=== PATIENT | female | born 1990 | race Caucasian/White ===

== ENCOUNTER 2018-01-01 22:32 | Inpatient (IN) ==
--- NOTE | 2018-01-02 00:39 | ED ---
HPI General Chief Complaint: Abdominal Pain Stated Complaint: flank pain Time Seen by Provider: 01/02/18 00:20 History of Present Illness HPI narrative: Patient presents to the emergency department complaining of right upper quadrant epigastric pain 1 week. Pain described as sharp/dull, constant, no aggravating or alleviating factors, she has a MD appointment on the for the symptoms. Is also complaining of approximately 3-4 episodes of yellow mucousy diarrhea that started today, nausea, temperature 99.3, but she denies vomiting, fever, chills, vaginal discharge, or dysuria. Last menstrual period was November 28. Related Data Home Medications Medication Instructions Recorded Confirmed meloxicam 15 mg PO DAILY 01/02/18 01/02/18 Allergies Allergy/AdvReac Type Severity Reaction Status Date / Time No Known Allergies Allergy Verified 01/02/18 00:49 Review of Systems ROS: all other systems reviewed are negative [facility] Medical History Medical History Patient denies medical problems (Acute) Surgical History Surgical History No history of previous surgery (Acute) Social History Social History Substance History: No History of Abuse Second Hand Smoke Exposure: No Smoking Status: Never smoker How Often Do You Have a Drink Containing Alcohol: Monthly or less Recent Travel in [facility] within the Last 8 Weeks: No Recent Out of Country Travel within the Last 8 Weeks: No Exam Narrative Exam Narrative: GENERAL: No acute distress. SKIN: Focused skin assessment warm/dry. HEAD: Atraumatic. Normocephalic. EYES: Pupils equal and round. No scleral icterus. No injection or drainage. ENT: No nasal bleeding or discharge. Mucous membranes pink and moist. NECK: Trachea midline. No JVD. CARDIOVASCULAR: Regular rate and rhythm. No murmur appreciated. RESPIRATORY: No accessory muscle use. Clear to auscultation. Breath sounds equal bilaterally. GASTROINTESTINAL: Abdomen soft, epigastric and right upper quadrant tenderness, obese. Hepatic and splenic margins not palpable. MUSCULOSKELETAL: No obvious deformities. No clubbing. No cyanosis. No edema. NEUROLOGICAL: Awake and alert. No obvious cranial nerve deficits. Motor grossly within normal limits. Normal speech. PSYCHIATRIC: Appropriate mood and affect; insight and judgment normal. Course Initial Documented Vital Signs Temperature 98.4 F 01/01/18 23:37 Pulse Rate 121 H 01/01/18 23:37 Respiratory Rate 16 01/01/18 23:37 Blood Pressure 165/98 H 01/01/18 23:37 Pulse Oximetry 100 01/01/18 23:37 Last Documented Vital Signs Temperature 98.4 F 01/01/18 23:37 Pulse Rate 121 H 01/01/18 23:37 Respiratory Rate 16 01/01/18 23:37 Blood Pressure 165/98 H 01/01/18 23:37 Pulse Oximetry 100 01/01/18 23:37 Medical Decision Making MDM Narrative Medical decision making narrative: Patient presents to the emergency department with abdominal pain 1 week patient placed on rn cardiac cath, continuous pulse ox, and IV access obtained and is anxious and is requesting medicine for anxiety , and Ativan 1 mg IV given. Right upper quadrant ultrasound, CT abdomen pelvis , and labs ordered. 0157: Spoke to Dr. Klein, surgery caption writer. Admit to hospitalist, keep NPO. U/A + UTI U/S: Gallstones. The gallbladder wall is borderline thickened. CT: CONCLUSION:1. No acute abnormality seen.2. Gallstones Labs: elevated wbc, glc, ALT; + UTI Medical Screen Exam Complete: Yes Emergency Medical Condition: Yes Differential Diagnosis Differential Diagnosis: Cholelithiasis, cholecystitis, peptic ulcer disease/GERD , pancreatitis, POC Test Results POC Urine Results: Negative Lab Data Result diagrams: 01/02/18 01:40 01/02/18 01:40 Lab Results 01/02/18 01/02/18 01/02/18 Range/Units 00:35 01:40 01:40 WBC 13.4 H (4.0-11.0) th/mm3 RBC 5.14 (4.00-5.30) mil/mm3 Hgb 14.6 (11.6-15.3) gm/dL Hct 42.3 (35.0-46.0) % MCV 82.2 (80.0-100.0) fL MCH 28.4 (27.0-34.0) pg MCHC 34.5 (32.0-36.0) % RDW 12.7 (11.6-17.2) % Plt Count 315 (150-450) th/mm3 MPV 7.0 (7.0-11.0) fL Neut % (Auto) 76.8 H (16.0-70.0) % Lymph % (Auto) 17.2 (9.0-44.0) % [place]once % (Auto) 5.0 (0.0-8.0) % Eos % (Auto) 0.6 (0.0-4.0) % Baso % (Auto) 0.4 (0.0-2.0) % Neut # (Auto) 10.3 H (1.8-7.7) th/mm3 Lymph # (Auto) 2.3 (1.0-4.8) th/mm3 [place] # (Auto) 0.7 (0.0-0.9) th/mm3 Eos # (Auto) 0.1 (0.0-0.4) th/mm3 Baso # (Auto) 0.0 (0.0-0.2) th/mm3 WBC Differential . Differential Comment Auto diff final PT 9.9 (9.8-11.6) sec INR 1.0 Ratio APTT 24.7 (24.3-30.1) sec Sodium (136-145) meq/L Potassium (3.5-5.1) meq/L Chloride (98-107) meq/L Carbon Dioxide (21.0-32.0) meq/L Anion Gap (5-15) meq/L BUN (7-18) mg/dL Creatinine (0.50-1.00) mg/dL Estimated GFR (>89) mL/min Random Glucose (74-106) mg/dL Lactic Acid (0.4-2.0) mmol/L Calcium (8.5-10.1) mg/dL Total Bilirubin (0.2-1.0) mg/dL AST (15-37) U/L ALT (10-53) U/L Alkaline Phosphatase (45-117) U/L Total Protein (6.4-8.2) g/dL Albumin (3.4-5.0) g/dL Lipase (73-393) U/L Urine Color Yellow (Yellw/Straw) Urine Clarity Hazy H (Clear) Urine pH 5.0 (5.0-8.5) Ur Specific [place] 1.025 (1.002-1.035) Urine Protein Negative (Neg-Trace) mg/dL Urine Glucose (UA) Negative (Negative) mg/dL Urine Ketones Negative (Negative) mg/dL Urine Occult Blood Moderate H (Negative) Urine Nitrate Negative (Negative) Urine Bilirubin Negative (Negative) Urine Urobilinogen Less than 2 (Less than 2) mg/dL Ur Leukocyte Esterase Moderate H (Negative) Urine RBC 10 H (0-3) /hpf Urine WBC 17 H (0-5) /hpf Ur Squamous Epith Cells 5 (0-5) /hpf Urine Bacteria Occasional H (None) /hpf Hyaline Casts 1 (0-3) /lpf Micro UA Comment Culture indicated Urine Culture Comments Culture indicated 01/02/18 01/02/18 Range/Units 01:40 01:40 WBC (4.0-11.0) th/mm3 RBC (4.00-5.30) mil/mm3 Hgb (11.6-15.3) gm/dL Hct (35.0-46.0) % MCV (80.0-100.0) fL MCH (27.0-34.0) pg MCHC (32.0-36.0) % RDW (11.6-17.2) % Plt Count (150-450) th/mm3 MPV (7.0-11.0) fL Neut % (Auto) (16.0-70.0) % Lymph % (Auto) (9.0-44.0) % [place] % (Auto) (0.0-8.0) % Eos % (Auto) (0.0-4.0) % Baso % (Auto) (0.0-2.0) % Neut # (Auto) (1.8-7.7) th/mm3 Lymph # (Auto) (1.0-4.8) th/mm3 [place] # (Auto) (0.0-0.9) th/mm3 Eos # (Auto) (0.0-0.4) th/mm3 Baso # (Auto) (0.0-0.2) th/mm3 WBC Differential Differential Comment PT (9.8-11.6) sec INR Ratio APTT (24.3-30.1) sec Sodium 140 (136-145) meq/L Potassium 3.8 (3.5-5.1) meq/L Chloride 106 (98-107) meq/L Carbon Dioxide 25.5 (21.0-32.0) meq/L Anion Gap 9 (5-15) meq/L BUN 15 (7-18) mg/dL Creatinine 0.73 (0.50-1.00) mg/dL Estimated GFR Greater than 89 (>89) mL/min Random Glucose 107 H (74-106) mg/dL Lactic Acid 1.1 (0.4-2.0) mmol/L Calcium 8.7 (8.5-10.1) mg/dL Total Bilirubin 0.7 (0.2-1.0) mg/dL AST 18 (15-37) U/L ALT 65 H (10-53) U/L Alkaline Phosphatase 108 (45-117) U/L Total Protein 7.6 (6.4-8.2) g/dL Albumin 3.8 (3.4-5.0) g/dL Lipase 81 (73-393) U/L Urine Color (Yellw/Straw) Urine Clarity (Clear) Urine pH (5.0-8.5) Ur Specific [place] (1.002-1.035) Urine Protein (Neg-Trace) mg/dL Urine Glucose (UA) (Negative) mg/dL Urine Ketones (Negative) mg/dL Urine Occult Blood (Negative) Urine Nitrate (Negative) Urine Bilirubin (Negative) Urine Urobilinogen (Less than 2) mg/dL Ur Leukocyte Esterase (Negative) Urine RBC (0-3) /hpf Urine WBC (0-5) /hpf Ur Squamous Epith Cells (0-5) /hpf Urine Bacteria (None) /hpf Hyaline Casts (0-3) /lpf Micro UA Comment Urine Culture Comments Imaging Data Radiologist's impression: Abdomen/Pelvis CT 01/02/18 00:26 CONCLUSION: 1. No acute abnormality seen. 2. Gallstones Gallbladder Ultrasound 01/02/18 00:26 CONCLUSION: Gallstones. The gallbladder wall is borderline thickened. Discharge Plan Discharge Disposition Patient Disposition: 30 Still Patient Discharge Condition Condition: Stable Discharge Details Diagnosis: Cholelithiasis, Acute cholecystitis, Urinary tract infection Physicians Team ED Provider: Dolores Cobian Primary Care Provider: Carey Pace Attending Provider: Sara Black Other Providers: Miguel Ángel Klein Status ED Status: Admitted Patient
[2018-01-02 01:00] LABS: Bacteria,Urine Occasional /hpf; Bilirubin,Urine Negative (Negative); Clarity,Urine Hazy (Clear); Color,Urine Yellow (Yellw/Straw); Glucose,Urine (UA) Negative (Negative); Hyaline Casts,Urine 1 /lpf (0-3); Leukocyte Esterase,Urine Moderate (Negative); Nitrite,Urine Negative (Negative); Specific Gravity,Urine 1.025 (1.002-1.035); Squamous Epithelial Cell,Urine 5 /hpf (0-5)
--- NOTE | 2018-01-02 01:18 | US ---
EXAM DATE: 01/02/2018 1:15 AM EDT AGE/SEX: 27 years / Female INDICATIONS: Right upper quadrant pain, diarrhea. CLINICAL DATA: This is the patient's initial encounter. Patient reports that signs and symptoms have been present for 1 week and indicates a pain score of 3/10. MEDICAL/SURGICAL HISTORY: . Right upper quadrant pain, diarrhea. None. COMPARISON: No prior exams available for comparison. MEASUREMENTS: Liver:__ 14.8 cm. Common Bile Duct:__ 4mm. FINDINGS: Liver: Normal echotexture without focal lesion or ductal dilatation. Portal Vein: Hepatopedal flow seen in portal vein. Common Duct: No intraluminal mass or stone visualized. Gallbladder: Multiple gallstones are seen within the gallbladder. The gallbladder wall is borderline thickened at 4 mm. Pancreas: Not well visualized. Right Kidney: Normal echotexture and cortical thickness. No mass or hydronephrosis. CONCLUSION: Gallstones. The gallbladder wall is borderline thickened. Electronically signed by: Kosta Trujillo MD 01/02/2018 1:17 AM EDT
--- NOTE | 2018-01-02 01:31 | CT ---
EXAM DATE: 01/02/2018 1:23 AM EDT AGE/SEX: 27 years / Female INDICATIONS: Right sided abdominal pain, diarrhea, fever. CLINICAL DATA: This is the patient's initial encounter. Patient reports that signs and symptoms have been present for 1 day and indicates a pain score of 6/10. MEDICAL/SURGICAL HISTORY: None. None. RADIATION DOSE: 12.42 CTDI (mGy) COMPARISON: No prior exams available for comparison. TECHNIQUE: Multiple contiguous axial images were obtained through the abdomen. Images were obtained using multiple row detector helical technique. Using automated exposure control and adjustment of the mA and/or kV according to patient size, radiation dose was kept as low as reasonably achievable to o btain optimal diagnostic quality images. DICOM format image data is available electronically for rev iew and comparison. FINDINGS: Lower Lungs: The visualized lower lungs are clear. Liver: The liver has a homogeneous density without space-occupying lesion. There is no dilation of th e biliary tree. Gallstones are present. The gallbladder is not distended. Spleen: Homogeneous density without enlargement. Pancreas: Unremarkable without mass or calcification. Kidneys: Normal in size and shape. No evidence of mass or hydronephrosis. Adrenal Glands: Unremarkable. Aorta: The aorta and proximal iliac vessels are grossly unremarkable without aneurysmal dilation. Bowel/Mesentery: The bowel loops are grossly unremarkable. The cecum and sigmoid colon have a normal configuration. The appendix is normal. Abdominal Wall: Intact. Retroperitoneum: No evidence of adenopathy in the retrocrural, para-aortic, or deep pelvic regions. Bladder: Contours are smooth. Reproductive Organs: No abnormal masses or calcifications seen. Inguinal: The inguinal region is unremarkable without evidence of adenopathy. Bony Structures: Unremarkable. CONCLUSION: 1. No acute abnormality seen. 2. Gallstones Electronically signed by: Kosta Trujillo MD 01/02/2018 1:30 AM EDT
[2018-01-02] MEDS ORDERED: Piperacil/Tazo 3.375 GM Premix 50 ML IV.SIG ONE (01:37)
[2018-01-02 02:05] LABS: Baso % (Auto) 0.4 % (0.0-2.0); Eos # (Auto) 0.1 th/mm3 (0.0-0.4); Eos % (Auto) 0.6 % (0.0-4.0); Hematocrit 42.3 % (35.0-46.0); Hemoglobin 14.6 gm/dL (11.6-15.3); Lymph # (Auto) 2.3 th/mm3 (1.0-4.8); Lymph % (Auto) 17.2 % (9.0-44.0); Mean Corpuscular HGB Conc 34.5 % (32.0-36.0); Mean Corpuscular Hemoglobin 28.4 pg (27.0-34.0); Mean Corpuscular Volume 82.2 fL (80.0-100.0); Mono # (Auto) 0.7 th/mm3 (0.0-0.9); Neut # (Auto) 10.3 th/mm3 (1.8-7.7); Neut % (Auto) 76.8 % (16.0-70.0); Platelet Count 315 th/mm3 (150-450); Red Blood Count 5.14 mil/mm3 (4.00-5.30); Red Cell Distribution Width 12.7 % (11.6-17.2); White Blood Count 13.4 th/mm3 (4.0-11.0)
[2018-01-02 02:10] LABS: Albumin 3.8 g/dL (3.4-5.0); Anion Gap 9 meq/L (5-15); Aspartate Aminotransferase 18 U/L (15-37); Blood Urea Nitrogen 15 mg/dL (7-18); Calcium 8.7 mg/dL (8.5-10.1); Carbon Dioxide 25.5 meq/L (21.0-32.0); Chloride 106 meq/L (98-107); Glomerular Filtration Rate Greater Than 89 mL/min (>89); Glucose,Random 107 mg/dL (74-106); Lipase 81 U/L (73-393); Potassium 3.8 meq/L (3.5-5.1); Sodium 140 meq/L (136-145)
[2018-01-02] MEDS ORDERED: Morphine Inj 4 MG/ML Vial IV.PUSH PRN (02:10)
[2018-01-02] MEDS ORDERED: Bisacodyl 10 MG Supp RECTAL PRN (02:10)
[2018-01-02] MEDS ORDERED: Acetaminophen 325 MG Tablet PO PRN (02:10)
[2018-01-02 02:14] LABS: Alanine Aminotransferase 65 U/L (10-53); Alkaline Phosphatase 108 U/L (45-117); Total Protein 7.6 g/dL (6.4-8.2)
[2018-01-02 02:24] LABS: Activated Partial Thrombo Time 24.7 sec (24.3-30.1); Prothrombin Time 9.9 sec (9.8-11.6)
--- NOTE | 2018-01-02 04:04 | P.HPIM ---
History of Present Illness Primary Care Physician: TONI Walters History of Present Illness: This is a 27-year-old female with no PMH who presents to ER with complaints of severe RUQ pain x1 wk. Reports pain is intermittent, cramping, 10/10, non- radiating, associated w/ nausea, no vomiting. No h/o similar symptoms in the past. On arrival, BP 165/98, HR 121, O2 sat 100% on RA, Afebrile. WBC 13.4. INR 1.0. Chemistry essentially unremarkable. UA positive UTI. CT Abdomen/ Pelvis with gallstones. Gallbladder US with gallstones, borderline gallbladder wall thickening. Dr. Klein consulted, plan is for eval in a.m. for possible surgical intervention. - Diagnosis (1) Acute cholecystitis (2) Cholelithiasis (3) UTI (urinary tract infection) Inpatient Certification: I certify that the inpatient services were ordered in accordance with Medicare regulations governing the order. This includes certification that hospital inpatient services are reasonable and necessary and in the case of services not specified as inpatient-only under 42 CFR 419.22(n), that they are appropriately provided as inpatient services in accordance to with the 2-midnight benchmark under 43 CFR 412.3(e) Estimated Total Length of Stay (Days): 2 Plans for Post Hospital Care: Not yet determined Review of Systems PAST FAMILY HISTORY: Reviewed. No h/o DM or CAD All other systems reviewed negative except as stated in HPI [facility] - History History Provided By: Patient - Medical History Medical History: Medical History (Last Updated 01/01/18 @ 23:39 by Rita Michael) Patient denies medical problems - Surgical History Surgical History: Surgical History (Last Updated 01/01/18 @ 23:39 by Rita Michael) No history of previous surgery - Tobacco History Second Hand Smoke Exposure: No Smoking Status: Never smoker - Alcohol History How Often Do You Have a Drink Containing Alcohol: Monthly or less - Substance Use History Substance History: No History of Abuse - Travel History Recent Travel in the [place] Within the Last 8 Weeks: No Recent Travel Out of the Country Within the Last 8 Weeks: No - Immunization History Tetanus Immunization: Unsure Hx Influenza Vaccine This Season: No Medications and Allergies Active Medications: Active Medications Acetaminophen (Tylenol) 650 mg PO Q4H PRN PRN Reason: Temp > 100.4 Al Hydroxide/Mg Hydroxide (Milk Of Magnesia Liq) 30 ml PO Q12H PRN PRN Reason: Mild Constipation Bisacodyl (Dulcolax Supp) 10 mg RECTAL DAILY PRN PRN Reason: SEVERE CONSITIPATION Sodium Chloride (Ns Inj) 1,000 mls @ 100 mls/hr IV.CONT .Q10H HASEEB Piperacillin/Tazobactam/Dextrose (Zosyn 4.5 Gm Premix) 4.5 gm in 100 mls @ 200 mls/hr IV.SIG Q6H HASEEB Lactulose (Lactulose Liq) 30 ml PO DAILY PRN PRN Reason: SEVERE CONSITIPATION Morphine Sulfate (Morphine Inj) 2 mg IV.PUSH Q4H PRN PRN Reason: PAIN 6-10 Ondansetron HCl (Zofran Inj) 4 mg IV.PUSH Q6H PRN PRN Reason: NAUSEA OR VOMITING Senna/Docusate Sodium (Hermila-Colace) 1 tab PO BID HASEEB Sennosides (Senokot) 17.2 mg PO Q12H PRN PRN Reason: Moderate Constipation Allergies Allergy/AdvReac Type Severity Reaction Status Date / Time No Known Allergies Allergy Verified 01/02/18 00:49 Home Medications Medication Instructions Recorded Confirmed Type meloxicam 15 mg PO DAILY 01/02/18 01/02/18 History Exam Vital signs: Vital Signs 01/01/18 23:37 01/02/18 03:21 Temperature 98.4 F Pulse Rate 121 H 94 H Respiratory Rate 16 16 Blood Pressure 165/98 H 142/82 H Pulse Oximetry 100 98 Intake & Output 01/01/18 01/01/18 01/02/18 06:59 18:59 06:59 Weight 102.058 kg Narrative: PE: GENERAL: Very pleasant young white female in no acute distress. HEENT: PERRLA, EOMI. No scleral icterus or conjunctival pallor. No lid lag or facial droop. CARDIOVASCULAR: Regular rate and rhythm. No obvious murmurs to auscultation. No chest tenderness to palpation. RESPIRATORY: No obvious rhonchi or wheezing. Clear to auscultation. Breath sounds equal bilaterally. GASTROINTESTINAL: Abdomen soft, RUQ tenderness palpation, nondistended. BS normal. MUSCULOSKELETAL: Extremities without clubbing, cyanosis, or edema. No obvious deformities. NEUROLOGICAL: Awake, alert and oriented x4. No focal neurologic deficits. Moving both upper and lower extremities spontaneously. Results - Labs CBC & Chem 7: 01/02/18 01:40 01/02/18 01:40 Labs: Short CBC 01/02/18 Range/Units 01:40 WBC 13.4 H (4.0-11.0) th/mm3 Hgb 14.6 (11.6-15.3) gm/dL Hct 42.3 (35.0-46.0) % Plt Count 315 (150-450) th/mm3 BMP 01/02/18 01:40 Sodium 140 Potassium 3.8 Chloride 106 Carbon Dioxide 25.5 BUN 15 Creatinine 0.73 Calcium 8.7 Liver Function 01/02/18 Range/Units 01:40 Total Bilirubin 0.7 (0.2-1.0) mg/dL AST 18 (15-37) U/L ALT 65 H (10-53) U/L Alkaline Phosphatase 108 (45-117) U/L Albumin 3.8 (3.4-5.0) g/dL Urine 01/02/18 Range/Units 00:35 Urine Color Yellow (Yellw/Straw) Urine Clarity Hazy H (Clear) Urine pH 5.0 (5.0-8.5) Ur Specific [place] 1.025 (1.002-1.035) Urine Protein Negative (Neg-Trace) mg/dL Urine Glucose (UA) Negative (Negative) mg/dL - Imaging Impressions Abdomen/Pelvis CT 01/02/18 00:26 CONCLUSION: 1. No acute abnormality seen. 2. Gallstones Gallbladder Ultrasound 01/02/18 00:26 CONCLUSION: Gallstones. The gallbladder wall is borderline thickened. Caprini VTE Risk Assessment Caprini VTE Risk Assessment: No/Low Risk (score <= 1) Caprini Risk Assessment Model: Point Value = 1 Point Value = 2 Point Value = 3 Point Value = 5 Age 41-60 Minor surgery BMI > 25 kg/m2 Swollen legs Varicose veins or History of unexplained or recurrent spontaneous Oral contraceptives or hormone replacement Sepsis (< 1 month) Serious lung disease, including pneumonia (< 1 month) Abnormal pulmonary function Acute myocardial infarction Congestive heart failure (< 1 month) History of inflammatory bowel disease Medical patient at bed rest Age 61-74 Arthroscopic surgery Major open surgery (> 45 min) Laparoscopic surgery (> 45 min) Malignancy Confined to bed (> 72 hours) Immobilizing plaster cast Central venous access Age >= 75 History of VTE Family history of VTE Factor V Leiden Prothrombin [id number] Lupus anticoagulant Anticardiolipin antibodies Elevated serum homocysteine Heparin-induced thrombocytopenia Other congenital or acquired thrombophilia Stroke (< 1 month) Elective arthroplasty Hip, pelvis, or leg fracture Acute spinal cord injury (< 1 month) Prophylaxis Regimen: Total Risk Factor Score Risk Level Prophylaxis Regimen 0-1 Low Early ambulation 2 Moderate Order ONE of the following: *Sequential Compression Device (SCD) *Heparin 5000 units SQ BID 3-4 Higher Order ONE of the following medications: *Heparin 5000 units SQ TID *Enoxaparin/Lovenox 40 mg SQ daily (WT < 150 kg, CrCl > 30 mL/min) *Enoxaparin/Lovenox 30 mg SQ daily (WT < 150 kg, CrCl > 10-29 mL/min) *Enoxaparin/Lovenox 30 mg SQ BID (WT < 150 kg, CrCl > 30 mL/min) AND/OR *Sequential Compression Device (SCD) 5 or more Highest Order ONE of the following medications: *Heparin 5000 units SQ TID (Preferred with Epidurals) *Enoxaparin/Lovenox 40 mg SQ daily (WT < 150 kg, CrCl > 30 mL/min) *Enoxaparin/Lovenox 30 mg SQ daily (WT < 150 kg, CrCl > 10-29 mL/min) *Enoxaparin/Lovenox 30 mg SQ BID (WT < 150 kg, CrCl > 30 mL/min) AND *Sequential Compression Device (SCD) Assessment and Plan - Assessment (1) Acute cholecystitis Code(s): K81.0 - Acute cholecystitis Status: Acute (2) Cholelithiasis Code(s): K80.20 - Calculus of gallbladder without cholecystitis without obstruction Status: Acute (3) UTI (urinary tract infection) Code(s): N39.0 - Urinary tract infection, site not specified Status: Acute - Plan A/P: 1. Cholecystitis: w/ Cholelithiasis, acute onset RUQ pain x1 wk w/ associated nausea, Gallbladder US w/ gallbladder wall thickening, images reviewed, CT Abd/ Pelvis w/ cholelithiasis. Dr. Klein consulted, will eval in am for possible surgical intervention. NPO, IVF, analgesics/antiemetics as needed. 2. UTI: U/a w/ UTI, continue IV Abx, follow up cultures, IVF, monitor I/O 3. DVT Prophylaxis: SCD/Teds 4. Social work for d/c planning as needed 5. Case discussed w/ ER physician at length, labs/records/imaging reviewed by me. (2) Cholelithiasis Qualifiers: Cholelithiasis location: gallbladder Cholecystitis presence: with cholecystitis Cholecystitis acuity: unspecified acuity Biliary obstruction: without biliary obstruction Qualified Code(s): K80.10 - Calculus of gallbladder with chronic cholecystitis without obstruction
[2018-01-02] MEDS: Sod Chloride 0.9% Inj 1,000 ML IV.CONT SCH ×3 (05:32→23:57)
[2018-01-02] MEDS: Piperacil/Tazo 4.5 GM Premix 4.5 GM/100 ML BAG IV.SIG SCH ×4 (08:11→19:47)
[2018-01-02] MEDS: Senna/Docusate Sodium 8.6/50 MG Tablet PO SCH ×2 (08:12→20:36)
[2018-01-02] MEDS ORDERED: Glycopyrrolate Inj 1 MG/5 ML Syringe IV.PUSH ONE (12:00)
[2018-01-02] MEDS ORDERED: Ketorolac Inj 30 MG/ML (IVP) Vial IV.PUSH ONE (12:00)
[2018-01-02] MEDS ORDERED: Lidocaine PF 1% Inj 5 ML Syringe INFILTRATN ONE (12:00)
[2018-01-02] MEDS ORDERED: Neostigmine Inj 5 MG/5 ML Syringe IV.PUSH ONE (12:00)
--- NOTE | 2018-01-02 13:38 | MB ---
cc: Carlton Vásquez MD DATE: 01/02/2018 CHIEF COMPLAINT: Abdominal pain for 1 week. HISTORY OF PRESENT ILLNESS: Ms. Villarreal is a very pleasant 27-year-old female who presented to the emergency department last night complaining of a 1-week history of epigastric, right upper quadrant abdominal pain. She states the pain began last weekend. The pain was in the right upper quadrant with radiation to the epigastric region. She had associated nausea but no vomiting. She had no fever or chills. She reports she called her primary care doctor but was told she could not get in until next week. She was advised if her pain persists or worsens to go to the ER. She states the pain persisted throughout the week. The pain was made worse by eating food. Last night apparently, she ate some steak, and the pain worsened. Then she went to the emergency room. In the emergency room, she was seen and evaluated, worked up, found to have gallstones and thickening of the gallbladder noted on imaging, concerning for cholecystitis. She was admitted for observation and surgical evaluation. The patient reports no previous episodes of abdominal pain other than this past week. She states her mother had her gallbladder removed several years ago. She reports the pain is made worse by eating. She does not eat a very healthy diet according to her. The patient reports that she also had some loose stool last night and this morning, which she had not previously had. She denies any jaundice, fever, or chills. PAST MEDICAL HISTORY: None. PAST SURGICAL HISTORY: None. MEDICATIONS: None. ALLERGIES: SHE HAS NO KNOWN DRUG ALLERGIES. SOCIAL HISTORY: She does not smoke. She only drinks on a social basis. She is and lives here locally with her . FAMILY HISTORY: Her mother had her gallbladder removed. She denies any significant malignancies. REVIEW OF SYSTEMS: Well documented in the HPI. PHYSICAL EXAMINATION: VITAL SIGNS: Temperature is 98, T-max is 99.7, temperature now is 98.2, pulse has a high of 97 but is currently 68 now. Her blood pressure is 148/60, respiratory rate 20, O2 saturation 98% on room air. GENERAL: This is a pleasant, obese female sitting in the emergency department, no apparent distress. HEENT: Pupils equal, round and reactive to light. Sclerae is white. Oropharynx is clear and moist. NECK: Supple. No masses. LUNGS: Clear to auscultation bilaterally. HEART: S1, S2. No murmur. ABDOMEN: Soft, tender in the right upper quadrant. No rebound or guarding. Negative Pichardo sign. Abdomen is soft and obese. EXTREMITIES: Free range of motion x4. NEUROLOGIC: Alert and oriented x3. LABORATORY DATA: White blood cell count is 13 with 76% neutrophils. Hemoglobin 14, platelet count of 315. INR is 1.0. Electrolytes are within normal limits. LFTs: ALT is slightly elevated at 65. Alkaline phosphatase, AST are both normal. Total bilirubin normal. Lipase is normal at 81. IMAGING: CT of the abdomen and pelvis demonstrates a thickened gallbladder wall with some gallstones. Ultrasound confirms a thickened gallbladder wall with gallstones. No free fluid. No ductal dilatation. IMPRESSION: Acute cholecystitis. Risks and benefits of laparoscopic cholecystectomy, possible open, were discussed with her. She states the pain is better than it was last night, but she has been given several doses of morphine. We discussed immediate cholecystectomy versus delayed cholecystectomy. Because she has been hurting for a week, she wanted to go ahead and proceed with immediate cholecystectomy. Operating room was notified at 10:30 a.m. on Thursday morning of the patient's need to go. Currently, there are 4 cases, and they state that she will be worked in later in the afternoon. I advised the patient that the operating room was unable to get to her today, that we will try again maybe Thursday or Thursday. She understands that her case is urgent but not emergent, and she may get bumped. MD ANDREW Avalos/chayo , 12:32 PM , 12:39 PM
[2018-01-02] MEDS ORDERED: Sugammadex Inj 200 MG/2 ML Vial IV.PUSH ONE (13:59)
[2018-01-02] MEDS ORDERED: Bupivacaine/Epinephrine Inj 0.25% 50 ML Vial ONE (14:43)
[2018-01-02] MEDS ORDERED: Ketorolac Inj 30 MG/ML (IVP) Vial IV.PUSH PRN (16:23)
[2018-01-02] MEDS ORDERED: Morphine Inj 4 MG/ML Vial IM PRN (16:24)
[2018-01-02] MEDS ORDERED: fentaNYL Citrate Inj 100 MCG/2 ML Ampul ONE (16:37)
[2018-01-02] MEDS ORDERED: *morphine SULFATE 10 MG/ML PERIprocedure ONLY ONE ×2 (16:55→17:04)
--- NOTE | 2018-01-02 17:32 | MP ---
cc: Carlton Vásquez MD DATE OF OPERATION: 01/02/2018 DATE OF PROCEDURE: 01/02/2018 PREOPERATIVE DIAGNOSES: 1. Acute cholecystitis. 2. Morbid obesity. POSTOPERATIVE DIAGNOSES: 1. Acute cholecystitis. 2. Morbid obesity. PROCEDURE PERFORMED: Laparoscopic cholecystectomy. SURGEON: Carlton Vásquez MD REGIONAL SALES TRAINER: Karine Thomson MS-3 ANESTHESIA: General endotracheal. COMPLICATIONS: None. INDICATIONS FOR PROCEDURE: Ms. Villarreal is a pleasant 27-year-old female who came to the emergency department with a 6-day history of right upper quadrant abdominal pain. She was seen and evaluated and found to have acute cholecystitis by history, physical exam, imaging and lab data. She was offered immediate cholecystectomy. Risks and benefits of laparoscopic and possible open cholecystectomy were discussed with her, and she was agreeable. PROCEDURE DETAILS: The patient was identified, brought to the operating room, placed supine on the operating table. After adequate general endotracheal anesthesia was achieved, the abdomen was prepped and draped in standard surgical fashion. Infraumbilical space was anesthetized with 0.25% Marcaine. Infraumbilical incision was made. Dissection was carried down through subcutaneous tissue to midline fascia. Midline fascia was then incised sharply. A finger was then placed in the peritoneal cavity without difficulty. Blunt balloon trocar was inserted, and the abdomen was insufflated to 15 mmHg using CO2 gas. Next, two 5 mm trocars were placed in the right upper quadrant under direct vision after anesthetizing the skin and subcutaneous tissue with 0.25% Marcaine. Attention was directed to the gallbladder, which was identified. Gallbladder was noted to be slightly edematous. Gallbladder was retracted cephalad. The patient had some omental adhesions as well as some adhesions between the duodenum to the neck of the gallbladder, which were carefully taken down with sharp dissection. Once the gallbladder neck was freed up, we were able to dissect it. Because of the patient's morbid obesity, we had to place a third port in the right upper quadrant under direct vision after anesthetizing the skin and subcutaneous tissue with 0.25% Marcaine. This was used to hold up the liver and better visualize the gallbladder neck. The neck was carefully dissected. The cystic artery and cystic duct were clearly identified in 2 planes and confirmed. Once they were confirmed, they were clipped twice proximally, once distally and then divided. Gallbladder was then dissected out of the hepatic fossa using electrocautery Bovie. Gallbladder was placed in an Endopouch bag. Gallbladder was then removed and inspected. Clips were placed on the cystic artery and cystic duct stump. There was no evidence of leakage of bile at the clip. There was a small hole in the fundus of the gallbladder that was made during the dissection off the liver. Otherwise, there were no other abnormalities. The gallbladder contained multiple stones and was noted to be thickened. Gallbladder sent to Pathology. Next, the abdominal cavity was rinsed out with warm saline solution. The liver bed was inspected and found to be hemostatic. Clips were inspected on the cystic artery and cystic duct stump. There was no evidence of leakage of bile and no evidence of bleeding. Marcaine 0.25% was injected into the operative field. All trocars were then removed under direct vision. Midline fascia was repaired with 0 Vicryl in a [id number] fashion. Skin was closed with 4-0 Vicryl. The patient tolerated the procedure well, was awakened and brought to the recovery room in stable condition. MD ANDRWE Avalos/israel , 04:21 PM , 04:29 PM
[2018-01-03] MEDS: Piperacil/Tazo 4.5 GM Premix 4.5 GM/100 ML BAG IV.SIG SCH ×4 (01:45→20:54)
[2018-01-03] MEDS: Senna/Docusate Sodium 8.6/50 MG Tablet PO SCH ×2 (08:05→20:53)
[2018-01-03 08:06] LABS: Baso % (Auto) 0.1 % (0.0-2.0); Hematocrit 39.4 % (35.0-46.0); Hemoglobin 13.1 gm/dL (11.6-15.3); Lymph # (Auto) 1.3 th/mm3 (1.0-4.8); Lymph % (Auto) 10.2 % (9.0-44.0); Mean Corpuscular HGB Conc 33.2 % (32.0-36.0); Mean Corpuscular Hemoglobin 28.3 pg (27.0-34.0); Mean Corpuscular Volume 85.5 fL (80.0-100.0); Mean Platelet Volume 7.1 fL (7.0-11.0); Mono # (Auto) 0.7 th/mm3 (0.0-0.9); Mono % (Auto) 5.4 % (0.0-8.0); Neut % (Auto) 84.3 % (16.0-70.0); Platelet Count 283 th/mm3 (150-450); Red Blood Count 4.61 mil/mm3 (4.00-5.30); Red Cell Distribution Width 12.9 % (11.6-17.2); White Blood Count 13.1 th/mm3 (4.0-11.0)
[2018-01-03 08:39] LABS: Alanine Aminotransferase 58 U/L (10-53); Albumin 3.1 g/dL (3.4-5.0); Alkaline Phosphatase 89 U/L (45-117); Anion Gap 9 meq/L (5-15); Aspartate Aminotransferase 28 U/L (15-37); Blood Urea Nitrogen 8 mg/dL (7-18); Calcium 7.9 mg/dL (8.5-10.1); Carbon Dioxide 22.9 meq/L (21.0-32.0); Chloride 110 meq/L (98-107); Glomerular Filtration Rate Greater Than 89 mL/min (>89); Glucose,Random 128 mg/dL (74-106); Potassium 3.8 meq/L (3.5-5.1); Sodium 142 meq/L (136-145); Total Protein 6.3 g/dL (6.4-8.2)
--- NOTE | 2018-01-03 09:52 | P.PN ---
Subjective Interval history: This is a pleasant 27 y/o Female who came to ER with severe abdominal pain on the right quadrant area UA positive UTI. CT Abdomen/Pelvis with gallstones. Gallbladder US with gallstones, borderline gallbladder wall thickening. Dr. Klein consulted, status post Cholecystectomy due to Cholecystitis. 01/03: Stable in her bedroom, with relative by her side, no nausea, vomit or diarrhea, clean surgical wounds awaiting final by General Surgery. Physical Exam Vital signs: Vital Signs 01/02/18 12:47 01/02/18 16:28 01/02/18 16:30 Temperature 98.2 F 98.3 F Pulse Rate 78 112 H 100 H Respiratory Rate 20 12 12 Blood Pressure 128/48 L 131/61 125/60 Pulse Oximetry 96 100 100 01/02/18 16:45 01/02/18 17:00 01/02/18 17:15 Temperature Pulse Rate 79 72 80 Respiratory Rate 8 L 12 11 L Blood Pressure 126/72 116/70 122/72 Pulse Oximetry 97 100 100 01/02/18 17:30 01/02/18 19:56 01/02/18 20:33 Temperature 98.2 F Pulse Rate 73 75 Respiratory Rate 14 18 16 Blood Pressure 111/74 123/72 Pulse Oximetry 99 96 01/03/18 00:26 01/03/18 00:53 01/03/18 03:28 Temperature 98.4 F Pulse Rate 81 Respiratory Rate 18 20 18 Blood Pressure 124/72 Pulse Oximetry 96 01/03/18 04:38 Temperature 97.8 F Pulse Rate 73 Respiratory Rate 18 Blood Pressure 114/65 Pulse Oximetry 98 Intake & Output 01/02/18 01/03/18 01/03/18 18:59 06:59 18:59 Intake Total 1200 / 1200 680 / 680 100 / 100 Output Total 1000 / 1000 Balance 1200 / 1200 -320 / -320 100 / 100 Weight 105.7 kg Intake: IV 1200 / 1200 200 / 200 100 / 100 NS Inj 1,000 ML @ 100 mls/hr IV 1000 / 1000 .CONT .Q10H HASEEB Rx#:[id number] Zosyn 4.5 GM Premix 4.5 gm In 200 / 200 200 / 200 100 / 100 100 ml @ 200 mls/hr IV.SIG Q6H HASEEB Rx#:[id number] Oral 480 / 480 Output: Urine 1000 / 1000 Narrative: GENERAL: Obese patient in no acute distress. HEENT: PERRLA, EOMI. CARDIOVASCULAR: Regular rate and rhythm. RESPIRATORY: No obvious rhonchi or wheezing. Clear to auscultation. GASTROINTESTINAL: Abdomen soft, clean surgical wounds MUSCULOSKELETAL: Extremities without clubbing, cyanosis, or edema. NEUROLOGICAL: No focal neurologic deficits. Results - Labs CBC & Chem 7: 01/03/18 06:22 01/03/18 06:22 Laboratory Results - last 24 hr 01/03/18 01/03/18 06:22 06:22 WBC 13.1 H RBC 4.61 Hgb 13.1 Hct 39.4 MCV 85.5 MCH 28.3 MCHC 33.2 RDW 12.9 Plt Count 283 MPV 7.1 Neut % (Auto) 84.3 H Lymph % (Auto) 10.2 [place] % (Auto) 5.4 Eos % (Auto) 0.0 Baso % (Auto) 0.1 Neut # (Auto) 11.0 H Lymph # (Auto) 1.3 [place] # (Auto) 0.7 Eos # (Auto) 0.0 Baso # (Auto) 0.0 WBC Differential . Differential Comment Auto diff final Sodium 142 Potassium 3.8 Chloride 110 H Carbon Dioxide 22.9 Anion Gap 9 BUN 8 Creatinine 0.54 Estimated GFR Greater than 89 Random Glucose 128 H Calcium 7.9 L D Total Bilirubin 1.0 AST 28 ALT 58 H Alkaline Phosphatase 89 Total Protein 6.3 L D Albumin 3.1 L D - Imaging Abdomen/Pelvis CT 01/02/18 00:26 CONCLUSION: 1. No acute abnormality seen. 2. Gallstones Gallbladder Ultrasound 01/02/18 00:26 CONCLUSION: Gallstones. The gallbladder wall is borderline thickened. - Procedures DATE OF PROCEDURE: 01/02/2018 PREOPERATIVE DIAGNOSES: 1. Acute cholecystitis. 2. Morbid obesity. POSTOPERATIVE DIAGNOSES: 1. Acute cholecystitis. 2. Morbid obesity. PROCEDURE PERFORMED: Laparoscopic cholecystectomy. SURGEON: Carlton Vásquez MD Assessment and Plan - Assessment (1) Acute cholecystitis Code(s): K81.0 - Acute cholecystitis Status: Acute (2) Cholelithiasis Code(s): K80.20 - Calculus of gallbladder without cholecystitis without obstruction Status: Acute (3) UTI (urinary tract infection) Code(s): N39.0 - Urinary tract infection, site not specified Status: Acute - Plan 1. Acute Cholecystitis/Cholelithiasis, Gallbladder US w/ gallbladder wall thickening, images reviewed, CT Abd/Pelvis w/ cholelithiasis. Dr. Klein consulted, status post laparoscopic Cholecystectomy POD #1. awaiting final by General Surgery for discharge. 2. UTI: U/a w/ UTI, continue Zosyn, follow up cultures, IVF, monitor I/O DVT Prophylaxis: SCD/Teds Code Status: Full code. Discussed Condition With: patient and Nurse Miss Pop Discharge Planning: once cleared by general surgery. (2) Cholelithiasis Qualifiers: Cholelithiasis location: gallbladder Cholecystitis presence: with cholecystitis Cholecystitis acuity: unspecified acuity Biliary obstruction: without biliary obstruction Qualified Code(s): K80.10 - Calculus of gallbladder with chronic cholecystitis without obstruction
[2018-01-03] MEDS: Sod Chloride 0.9% Inj 1,000 ML IV.CONT SCH ×2 (11:04→18:01)
--- NOTE | 2018-01-03 13:43 | P.PNGS ---
Subjective Patient reports: still having pain, pain is less, no flatus (Does not feel comfortable going home yet) Physical Exam Vital signs: Vital Signs 01/02/18 16:28 01/02/18 16:30 01/02/18 16:45 Temperature 98.3 F Pulse Rate 112 H 100 H 79 Respiratory Rate 12 12 8 L Blood Pressure 131/61 125/60 126/72 Pulse Oximetry 100 100 97 01/02/18 17:00 01/02/18 17:15 01/02/18 17:30 Temperature Pulse Rate 72 80 73 Respiratory Rate 12 11 L 14 Blood Pressure 116/70 122/72 111/74 Pulse Oximetry 100 100 99 01/02/18 19:56 01/02/18 20:33 01/03/18 00:26 Temperature 98.2 F Pulse Rate 75 Respiratory Rate 18 16 18 Blood Pressure 123/72 Pulse Oximetry 96 01/03/18 00:53 01/03/18 03:28 01/03/18 04:38 Temperature 98.4 F 97.8 F Pulse Rate 81 73 Respiratory Rate 20 18 18 Blood Pressure 124/72 114/65 Pulse Oximetry 96 98 01/03/18 08:00 01/03/18 12:00 Temperature 97.9 F 98.2 F Pulse Rate 74 76 Respiratory Rate 17 18 Blood Pressure 121/63 104/64 Pulse Oximetry 97 99 Intake & Output 01/02/18 01/03/18 01/03/18 18:59 06:59 18:59 Intake Total 1200 / 1200 680 / 680 1100 / 1100 Output Total 1000 / 1000 Balance 1200 / 1200 -320 / -320 1100 / 1100 Weight 105.7 kg Intake: IV 1200 / 1200 200 / 200 1100 / 1100 NS Inj 1,000 ML @ 100 mls/hr IV 1000 / 1000 1000 / 1000 .CONT .Q10H HASEEB Rx#:[id number] Zosyn 4.5 GM Premix 4.5 gm In 200 / 200 200 / 200 100 / 100 100 ml @ 200 mls/hr IV.SIG Q6H HASEEB Rx#:[id number] Oral 480 / 480 Output: Urine 1000 / 1000 Narrative: Patient lying in bed Feels less painful but still having pain where she does not feel comfortable going home Assessment and Plan - Assessment (1) S/P laparoscopic cholecystectomy Code(s): Z90.49 - Acquired absence of other specified parts of digestive tract Status: Acute - Plan Patient status post laparoscopic cholecystectomy yesterday Possible discharge Thursday I told her she felt better this afternoon after he was up and around she certainly could be discharged but it this time she does not feel comfortable going home - Attending Attestation NOTE FOR SURGICAL ATTENDING, DR. NISHANT NYE I attest that I had a [id number] encounter with the patient on the same day, and personally performed and documented my assessment and findings in the medical record. The following services were provided during this hospital visit: Chart data review, vital sign assessments/reviewing monitor data Review of consultations notes if present. Medication orders/review and/or management Ordering and/or reviewing lab tests Ordering and/or interpreting/reviewing x-rays and/or diagnostic studies Care of the patient and discussion of the patient with the care team Documentation time To help prompt me to consider important information that might be impacting today's encounter and assessment, Information from prior notes written by myself or my colleagues may have been "brought forward/copy and pasted" into today's note.
[2018-01-04] MEDS: Sod Chloride 0.9% Inj 1,000 ML IV.CONT SCH (01:07)
[2018-01-04] MEDS: Piperacil/Tazo 4.5 GM Premix 4.5 GM/100 ML BAG IV.SIG SCH ×2 (03:40→08:33)
[2018-01-04 08:21] VITALS: RESP 18
[2018-01-04] MEDS: Senna/Docusate Sodium 8.6/50 MG Tablet PO SCH (08:33)
--- NOTE | 2018-01-04 08:42 | P.PN ---
Subjective Interval history: This is a pleasant 27 y/o Female who came to ER with severe abdominal pain on the right quadrant area UA positive UTI. CT Abdomen/Pelvis with gallstones. Gallbladder US with gallstones, borderline gallbladder wall thickening. Dr. Klein consulted, status post Cholecystectomy due to Cholecystitis. 01/03: Stable in her bedroom, with relative by her side, clean surgical wounds 01/04: Seen in her bedroom, No nausea, vomit or diarrhea, okay to discharge Home from General Surgery [id number]. Physical Exam Vital signs: Vital Signs 01/03/18 12:00 01/03/18 16:00 01/03/18 20:00 Temperature 98.2 F 98.2 F 97.9 F Pulse Rate 76 76 84 Respiratory Rate 18 19 20 Blood Pressure 104/64 99/61 L 117/61 Pulse Oximetry 99 99 96 01/03/18 21:20 01/04/18 00:37 01/04/18 01:40 Temperature 97.6 F Pulse Rate 73 Respiratory Rate 16 20 16 Blood Pressure 149/78 H Pulse Oximetry 97 01/04/18 07:05 Temperature Pulse Rate Respiratory Rate 18 Blood Pressure Pulse Oximetry Intake & Output 01/03/18 01/04/18 01/04/18 18:59 06:59 18:59 Intake Total 1700 / 1700 1680 / 1680 100 / 100 Output Total 500 / 500 1000 / 1000 Balance 1200 / 1200 680 / 680 100 / 100 Weight 105.7 kg Intake: IV 1200 / 1200 1100 / 1100 100 / 100 NS Inj 1,000 ML @ 100 mls/hr IV 1000 / 1000 1000 / 1000 .CONT .Q10H HASEEB Rx#:[id number] Zosyn 4.5 GM Premix 4.5 gm In 200 / 200 100 / 100 100 / 100 100 ml @ 200 mls/hr IV.SIG Q6H HASEEB Rx#:[id number] Oral 500 / 500 580 / 580 Output: Urine 500 / 500 1000 / 1000 Narrative: Patient lying in bed Feels less painful but still having pain where she does not feel comfortable going home Results - Labs CBC & Chem 7: 01/03/18 06:22 01/03/18 06:22 Microbiology 01/02/18 00:35 Clean Catch Urine Urine Culture - Final 50-100,000 cfu/mL mixed alirio (probable contaminants ) - Procedures DATE OF PROCEDURE: 01/02/2018 PREOPERATIVE DIAGNOSES: 1. Acute cholecystitis. 2. Morbid obesity. POSTOPERATIVE DIAGNOSES: 1. Acute cholecystitis. 2. Morbid obesity. PROCEDURE PERFORMED: Laparoscopic cholecystectomy. SURGEON: Carlton Vásquez MD Assessment and Plan - Assessment (1) Acute cholecystitis Code(s): K81.0 - Acute cholecystitis Status: Acute (2) Cholelithiasis Code(s): K80.20 - Calculus of gallbladder without cholecystitis without obstruction Status: Acute (3) UTI (urinary tract infection) Code(s): N39.0 - Urinary tract infection, site not specified Status: Acute - Plan 1. Acute Cholecystitis/Cholelithiasis, Gallbladder US w/ gallbladder wall thickening, images reviewed, CT Abd/Pelvis w/ cholelithiasis. Dr. Klein consulted, status post laparoscopic Cholecystectomy POD #2 okay to discharge from Surgery standpoint. . 2. UTI: U/a w/ UTI, continue Zosyn, follow up cultures, IVF, monitor I/O, will continue Cipro for five days more. DVT Prophylaxis: SCD/Teds Code Status: Full Code. Discussed Condition With: patient, and her relative in the room. Discharge Planning: Okay to discharge from General Surgery standpoint. (2) Cholelithiasis Qualifiers: Cholelithiasis location: gallbladder Cholecystitis presence: with cholecystitis Cholecystitis acuity: unspecified acuity Biliary obstruction: without biliary obstruction Qualified Code(s): K80.10 - Calculus of gallbladder with chronic cholecystitis without obstruction
--- NOTE | 2018-01-04 09:06 | P.PNGS ---
<Gabi Mcfarland - Last Filed: 01/04/18 09:03> Subjective Interval history: Resting in bed; feeling better today; low appetite Physical Exam Vital signs: Vital Signs 01/03/18 12:00 01/03/18 16:00 01/03/18 20:00 Temperature 98.2 F 98.2 F 97.9 F Pulse Rate 76 76 84 Respiratory Rate 18 19 20 Blood Pressure 104/64 99/61 L 117/61 Pulse Oximetry 99 99 96 01/03/18 21:20 01/04/18 00:37 01/04/18 01:40 Temperature 97.6 F Pulse Rate 73 Respiratory Rate 16 20 16 Blood Pressure 149/78 H Pulse Oximetry 97 01/04/18 07:05 Temperature Pulse Rate Respiratory Rate 18 Blood Pressure Pulse Oximetry Intake & Output 01/03/18 01/04/18 01/04/18 18:59 06:59 18:59 Intake Total 1700 / 1700 1680 / 1680 100 / 100 Output Total 500 / 500 1000 / 1000 Balance 1200 / 1200 680 / 680 100 / 100 Weight 105.7 kg Intake: IV 1200 / 1200 1100 / 1100 100 / 100 NS Inj 1,000 ML @ 100 mls/hr IV 1000 / 1000 1000 / 1000 .CONT .Q10H HASEEB Rx#:[id number] Zosyn 4.5 GM Premix 4.5 gm In 200 / 200 100 / 100 100 / 100 100 ml @ 200 mls/hr IV.SIG Q6H HASEEB Rx#:[id number] Oral 500 / 500 580 / 580 Output: Urine 500 / 500 1000 / 1000 Narrative: Alert and awake Cardio: RRR Resp: CTAB Abd: soft; incision c/d/i with Steri strips in place No edema Assessment and Plan - Assessment (1) S/P laparoscopic cholecystectomy Code(s): Z90.49 - Acquired absence of other specified parts of digestive tract Status: Acute Plan: 27 year old female POD2 lap lidia -Tolerating regular diet -Pain controlled -Okay to shower; no bath tubs/swimming pools/beach -Avoid heavy pushing/pulling/lifting -GS clear for DC -Follow up next Thursday with Dr. Horowitz <Bishnu Horowitz - Last Filed: 01/04/18 09:29> Physical Exam Vital signs: Vital Signs 01/03/18 12:00 01/03/18 16:00 01/03/18 20:00 Temperature 98.2 F 98.2 F 97.9 F Pulse Rate 76 76 84 Respiratory Rate 18 19 20 Blood Pressure 104/64 99/61 L 117/61 Pulse Oximetry 99 99 96 01/03/18 21:20 01/04/18 00:37 01/04/18 01:40 Temperature 97.6 F Pulse Rate 73 Respiratory Rate 16 20 16 Blood Pressure 149/78 H Pulse Oximetry 97 01/04/18 07:05 Temperature Pulse Rate Respiratory Rate 18 Blood Pressure Pulse Oximetry Intake & Output 01/03/18 01/04/18 01/04/18 18:59 06:59 18:59 Intake Total 1700 / 1700 1680 / 1680 100 / 100 Output Total 500 / 500 1000 / 1000 Balance 1200 / 1200 680 / 680 100 / 100 Weight 105.7 kg Intake: IV 1200 / 1200 1100 / 1100 100 / 100 NS Inj 1,000 ML @ 100 mls/hr IV 1000 / 1000 1000 / 1000 .CONT .Q10H HASEEB Rx#:[id number] Zosyn 4.5 GM Premix 4.5 gm In 200 / 200 100 / 100 100 / 100 100 ml @ 200 mls/hr IV.SIG Q6H HASEEB Rx#:[id number] Oral 500 / 500 580 / 580 Output: Urine 500 / 500 1000 / 1000 Assessment and Plan - Assessment (1) S/P laparoscopic cholecystectomy Code(s): Z90.49 - Acquired absence of other specified parts of digestive tract Status: Acute - Attending Attestation I certify and attest that i personally examined the patient in her room. AQUACULTURAL WORKER SUPERVISOR documented our visit. DC home FU in office this week. BISHNU HOROWITZ MD FACS
[2018-01-04 09:47] VITALS: BP 145/83; PULSE 64; TEMP 98; O2SAT 96
--- NOTE | 2018-01-04 09:58 | P.DS ---
Date of admission: 01/02/18 02:10 Primary care physician: TONI Walters Attending physician on discharge: Gumaro Escobedo Anticipated date of discharge: 01/04/18 Brief History from admission: This is a 27-year-old female with no PMH who presents to ER with complaints of severe RUQ pain x1 wk. Reports pain is intermittent, cramping, 10/10, non- radiating, associated w/ nausea, no vomiting. No h/o similar symptoms in the past. On arrival, BP 165/98, HR 121, O2 sat 100% on RA, Afebrile. WBC 13.4. INR 1.0. Chemistry essentially unremarkable. UA positive UTI. CT Abdomen/ Pelvis with gallstones. Gallbladder US with gallstones, borderline gallbladder wall thickening. Dr. Klein consulted, plan is for eval in a.m. for possible surgical intervention. DS: Diagnosis - Discharge Diagnosis (1) Acute cholecystitis Status: Acute (2) Cholelithiasis Status: Acute (3) UTI (urinary tract infection) Status: Acute DS: Medications - Discharge Medications Prescriptions: hydrocodone-acetaminophen 1 tab PO Q4H PRN #15 tab PRN Reason: acute post op pain DS: Summary Hospital Course: This is a pleasant 27 y/o Female who came to ER with severe abdominal pain on the right quadrant area UA positive UTI. CT Abdomen/Pelvis with gallstones. Gallbladder US with gallstones, borderline gallbladder wall thickening. Dr. Klein consulted, status post Cholecystectomy due to Cholecystitis. 01/03: Stable in her bedroom, with relative by her side, clean surgical wounds 01/04: Seen in her bedroom, No nausea, vomit or diarrhea, okay to discharge Home from General Surgery standpoint. Assessment and Plan - Assessment (1) Acute cholecystitis Code(s): K81.0 - Acute cholecystitis Status: Acute (2) Cholelithiasis Code(s): K80.20 - Calculus of gallbladder without cholecystitis without obstruction Status: Acute (3) UTI (urinary tract infection) Code(s): N39.0 - Urinary tract infection, site not specified Status: Acute - Plan 1. Acute Cholecystitis/Cholelithiasis, Gallbladder US w/ gallbladder wall thickening, images reviewed, CT Abd/Pelvis w/ cholelithiasis. Dr. Klein consulted, status post laparoscopic Cholecystectomy POD #2 okay to discharge from Surgery standpoint. . 2. UTI: U/a w/ UTI, continue Zosyn, follow up cultures, IVF, monitor I/O, will continue Cipro for five days more. DVT Prophylaxis: SCD/Teds Code Status: Full Code. Discussed Condition With: patient, and her relative in the room. Discharge Planning: Okay to discharge from General it infrastructure specialist. - Time Spent with Patient Total time spent providing and/or coordinating discharge services: Less than 30 minutes - Quality: VTE Deep Vein Thrombosis/Pulmonary Embolism Present on Admission: No Exam Vital signs: Vital Signs 01/03/18 12:00 01/03/18 16:00 01/03/18 20:00 Temperature 98.2 F 98.2 F 97.9 F Pulse Rate 76 76 84 Respiratory Rate 18 19 20 Blood Pressure 104/64 99/61 L 117/61 Pulse Oximetry 99 99 96 01/03/18 21:20 01/04/18 00:37 01/04/18 01:40 Temperature 97.6 F Pulse Rate 73 Respiratory Rate 16 20 16 Blood Pressure 149/78 H Pulse Oximetry 97 01/04/18 07:05 01/04/18 08:00 Temperature 98.0 F Pulse Rate 64 Respiratory Rate 18 18 Blood Pressure 145/83 H Pulse Oximetry 96 Intake & Output 01/03/18 01/04/18 01/04/18 18:59 06:59 18:59 Intake Total 1700 / 1700 1680 / 1680 200 / 200 Output Total 500 / 500 1000 / 1000 Balance 1200 / 1200 680 / 680 200 / 200 Weight 105.7 kg Intake: IV 1200 / 1200 1100 / 1100 200 / 200 NS Inj 1,000 ML @ 100 mls/hr IV 1000 / 1000 1000 / 1000 .CONT .Q10H HASEEB Rx#:[id number] Zosyn 4.5 GM Premix 4.5 gm In 200 / 200 100 / 100 200 / 200 100 ml @ 200 mls/hr IV.SIG Q6H HASEEB Rx#:[id number] Oral 500 / 500 580 / 580 Output: Urine 500 / 500 1000 / 1000 Narrative: GENERAL: Obese patient in no acute distress. HEENT: PERRLA, EOMI. CARDIOVASCULAR: Regular rate and rhythm. RESPIRATORY: No obvious rhonchi or wheezing. Clear to auscultation. GASTROINTESTINAL: Abdomen soft, clean surgical wounds MUSCULOSKELETAL: Extremities without clubbing, cyanosis, or edema. NEUROLOGICAL: No focal neurologic deficits. Results Procedures completed during hospitalization: DATE OF PROCEDURE: 01/02/2018 PREOPERATIVE DIAGNOSES: 1. Acute cholecystitis. 2. Morbid obesity. POSTOPERATIVE DIAGNOSES: 1. Acute cholecystitis. 2. Morbid obesity. PROCEDURE PERFORMED: Laparoscopic cholecystectomy. SURGEON: Carlton Vásquez MD - Impressions ITS Impressions Abdomen/Pelvis CT 01/02/18 00:26 CONCLUSION: 1. No acute abnormality seen. 2. Gallstones Gallbladder Ultrasound 01/02/18 00:26 CONCLUSION: Gallstones. The gallbladder wall is borderline thickened. Discharge Plan - Discharge Disposition Patient Disposition: Discharge Home - Discharge Condition Condition: Stable - Discharge Order Discharge Orders: Discharge Order (Routine); Ordered 01/04/18 Ordered By: Gumaro Escobedo General Surgery Clear for Discharge (Routine); Ordered 01/04/18 Ordered By: Gabi Mcfarland - Discharge Details Anticipated Discharge Date: 01/04/18 Discharge Comment: Follow with General Manager Editorial as scheduled by his OYSTER BUYER - Physicians Team Primary Care Provider: Carey Pace Attending Provider: Gumaro Escobedo Other Providers: Miguel Ángel Klein MD ; Surgeons,[facility]
== END 2018-01-04 10:59 | disposition home or self-care (01) ==
LOC: NEPE 22:32 → NEDA 01-02 02:10 → NEPGCP 01-02 04:45 → N07 01-02 09:41 → NEPGCP 01-02 09:51 → N07 01-02 16:29
PROVIDERS: ADMIT Internal Medicine; ATTEND Internal Medicine